=== PATIENT | female | born 1950 | race Caucasian/White ===

== ENCOUNTER → 2020-05-03 | Emergency (ER) | payer OTHER ==
[~2020-05-03] VITALS: Ht 157.5 cm; Wt 58.5 kg
[~2020-05-03] MED LIST: ACETAMINOPHEN650 M2 PO; AZITHROMYCIN250 MG PO; PEPCID AC20 MG PO; SYNTHROID75 MCG; VITAMIN C WIT1000 MG PO
== END | disposition home or self-care (01) ==
LOC: ER 15:18
DX: J02.8 Acute pharyngitis due to other specified organisms (principal); B34.9 Viral infection, unspecified; B96.0 Mycoplasma pneumoniae [M. pneumoniae] as the cause of diseases classified elsewhere

== ENCOUNTER 2021-12-08 09:34 | Emergency (ER) | payer OTHER ==
[~2021-12-08] VITALS: Ht 165.1 cm; Wt 60.8 kg
[2021-12-08] MEDS ORDERED: CRESTOR10 MG PO (09:44)
[2021-12-08] MEDS ORDERED: NORVASC5 MG PO (09:44)
== END 2021-12-08 17:17 | disposition home or self-care (01) ==
LOC: ER 09:34
DX: R07.89 Other chest pain (principal)